=== PATIENT | female | born 1965 | race Caucasian/White ===

== ENCOUNTER 2023-12-22 08:48 | Emergency (ER) | payer MEDICAID ==
[~2023-12-22] VITALS: Ht 149.9 cm; Wt 58.1 kg
[2023-12-22 09:11] VITALS: O2SAT 100
[2023-12-22] MEDS ORDERED: COLC0.6C3 PO (10:48)
[2023-12-22] MEDS: COLCHICINE 0.6MG TABLET PO ONE (11:00)
[2023-12-22 11:16] VITALS: BP 145/74; PULSE 80; RESP 18; TEMP 98.2
== END 2023-12-22 11:28 | disposition home or self-care (01) ==
LOC: ER 08:48
DX: M79.672 Pain in left foot (principal); M79.675 Pain in left toe(s); I10 Essential (primary) hypertension; E78.00 Pure hypercholesterolemia, unspecified; E11.9 Type 2 diabetes mellitus without complications; Z98.890 Other specified postprocedural states
CPT/HCPCS: 73630; 99283

== ENCOUNTER 2024-01-01 18:04 | Emergency (ER) | payer MEDICAID, OTHER ==
[~2024-01-01] VITALS: Ht 149.9 cm; Wt 57.2 kg
[2024-01-01 18:17] VITALS: TEMP 98.2; O2SAT 97
[2024-01-01] MEDS ORDERED: COLCHICINE 0.6MG TABLET PO SCH (19:30)
[2024-01-01] MEDS: COLCHICINE 0.6MG TABLET PO NR (20:22)
[2024-01-01] MEDS ORDERED: INDO50CA98 MT (20:46)
[2024-01-01] MEDS ORDERED: COLC0.6C3 MT ×2 (20:46→20:58)
[2024-01-01 21:05] VITALS: BP 163/73; PULSE 80; RESP 14
== END 2024-01-01 21:06 | disposition home or self-care (01) ==
LOC: ER 18:04
DX: M10.9 Gout, unspecified (principal); M79.675 Pain in left toe(s); E11.9 Type 2 diabetes mellitus without complications; E78.00 Pure hypercholesterolemia, unspecified; I10 Essential (primary) hypertension; Z98.890 Other specified postprocedural states
CPT/HCPCS: 99283